=== PATIENT | male | born 1985 | race Caucasian/White ===

== ENCOUNTER 2018-07-17 17:32 | Emergency (ER) | payer OTHER ==
[~2018-07-17] VITALS: Ht 185.4 cm; Wt 77.3 kg
[2018-07-17] MEDS: OxyCODONE HCL/ACETAMINOPHEN 5-325 MG TABLET PO ONE (18:10)
[2018-07-17] MEDS: LIDOCAINE 1% 10 ML VIAL INJ ONE (19:15)
[2018-07-17] MEDS: FentaNYL CITRATE-PF 100 MCG/2 ML VIAL IVP ONE (19:15)
[2018-07-17 20:16] VITALS: BP 118/76
== END 2018-07-17 20:21 | disposition home or self-care (01) ==
LOC: EMS 17:32
DX: S43.005A Unspecified dislocation of left shoulder joint, initial encounter (principal); W20.8XXA Other cause of strike by thrown, projected or falling object, initial encounter; Y93.89 Activity, other specified; Y92.89 Other specified places as the place of occurrence of the external cause; Y99.0 Civilian activity done for income or pay
CPT/HCPCS: 23650; 71045; 73030; 99284; J3010; J3490